=== PATIENT | female | born 1960 | race Two or more races ===

== ENCOUNTER 2018-01-05 15:59 | Emergency (ER) | payer SELFPAY ==
[~2018-01-05] VITALS: Ht 167.6 cm; Wt 80.3 kg
[2018-01-05 16:30] VITALS: BP 147/75
[2018-01-05] MEDS ORDERED: LORazepam 1mg tab ORAL ONE (16:45)
[2018-01-05 17:35] VITALS: BP 142/72
[2018-01-05] MEDS ORDERED: Meclizine 25mg tab ORAL ONE (17:45)
[2018-01-05 18:14] LABS: BASOPHILS % (AUTO) 0.7 % (0.0-2.0); EOSINOPHILS % (AUTO) 0.4 % (0.0-3.0); HEMATOCRIT 42.9 % (37.0-47.0); HEMOGLOBIN 14.8 G/DL (12.0-16.0); LYMPHOCYTES % (AUTO) 15.8 % (20.0-45.0); MEAN CORPUSCULAR VOLUME 92 FL (80-99); MONOCYTES % (AUTO) 6.3 % (1.0-10.0); NEUTROPHILS % (AUTO) 76.7 % (45.0-75.0); PLATELET COUNT 246 K/UL (150-450); RED BLOOD COUNT 4.64 M/UL (4.20-5.40); RED CELL DISTRIBUTION WIDTH 11.1 % (11.6-14.8); WHITE BLOOD COUNT 8.5 K/UL (4.8-10.8)
[2018-01-05 18:20] LABS: ANION GAP 8 mmol/L (5-15); BLOOD UREA NITROGEN 13 mg/dL (7-18); CALCIUM 10.1 MG/DL (8.5-10.1); CARBON DIOXIDE 30 MMOL/L (21-32); CHLORIDE 103 MMOL/L (98-107); CREATININE 0.9 MG/DL (0.55-1.30); SODIUM 141 MMOL/L (136-145)
[2018-01-05 18:25] LABS: ALANINE AMINOTRANSFERASE 34 U/L (12-78); ALBUMIN 4.3 G/DL (3.4-5.0); ALBUMIN/GLOBULIN RATIO 0.9 (1.0-2.7); ALKALINE PHOSPHATASE 79 U/L (46-116); ASPARTATE AMINO TRANSFERASE 21 U/L (15-37); BILIRUBIN,TOTAL 0.3 MG/DL (0.2-1.0)
--- NOTE | 2018-01-05 19:07 | Emergency Room Report ---
History of Present Illness General Chief Complaint: General Complaint Source: Patient Present Illness HPI 57 YO Female presents to the ED c/o feeling shaky and having dizziness x 1 month. Described intermittent episodic bouts of the room spinning without visual or auditory changes. Denies N/V. Pt. reports feeling Shaky today and has had a progressive onset 5/10 in severity GRIFFITHS that is generalized. Denies weakness or loss of gross motor movements, paresthesias, difficulty with speaking, swallowing or walking. Denies significant Pmhx and denies hx of anxiety/ panic attacks. Pt. denies hx of migraines or recent head injury. Denies Neck pain or stiffness. Denies photophobia. Patient states that she is worried about the cost that she does not have insurance and would like to keep cost down as much as possible. Allergies: Coded Allergies: No Known Allergies (Unverified , 01/05/18) Patient History Past Medical History: see triage record Past Surgical History: none Pertinent Family History: none Last Menstrual Period: menopause Now: No Reviewed Nursing Documentation: PMH: Agreed; PSxH: Agreed Nursing Documentation-PMH Past Medical History: No Stated History Review of Systems All Other Systems: negative except mentioned in HPI Physical Exam Vital Signs Date Time Temp Pulse Resp B/P (MAP) Pulse Ox O2 Delivery O2 Flow Rate FiO2 01/05/18 16:21 98.6 97 16 147/75 100 Room Air Sp02 EP Interpretation: reviewed, normal General Appearance: no apparent distress, alert, GCS 15, non-toxic, mild distress - Pt. Head: normocephalic, atraumatic Eyes: bilateral eye normal inspection, bilateral eye PERRL ENT: hearing grossly normal, normal voice Neck: full range of motion Respiratory: chest non-tender, lungs clear, normal breath sounds, speaking full sentences Cardiovascular #1: regular rate, rhythm, no edema Gastrointestinal: normal bowel sounds, non tender, soft Rectal: deferred Genitourinary: normal inspection Musculoskeletal: back normal, gait/station normal, normal range of motion, non- tender Neurologic: alert, oriented x3, responsive, motor strength/tone normal, sensory intact, normal gait, speech normal, no pronator, other - Unable to illicit nystagmus, able to perform finger to nose. No facial droop., grossly normal Psychiatric: judgement/insight normal, anxious Skin: normal color, no rash, warm/dry, well hydrated Medical Decision Making PA Attestation Dr. Orellana is my supervising Physician whom patient management has been discussed with. Diagnostic Impression: Primary Impression: Vertigo ER Course 57 YO Female presents to the ED c/o feeling shaky and having dizziness x 1 month. Described intermittent episodic bouts of the room spinning without visual or auditory changes. Denies N/V. Pt. reports feeling Shaky today and has had a progressive onset 5/10 in severity GRIFFITHS that is generalized. Denies weakness or loss of gross motor movements, paresthesias, difficulty with speaking, swallowing or walking. Denies significant Pmhx and denies hx of anxiety/ panic attacks. Pt. denies hx of migraines or recent head injury. Denies Neck pain or stiffness. Denies photophobia. Patient states that she is worried about the cost that she does not have insurance and would like to keep cost down as much as possible. Ddx considered but are not limited to Mnire's, BPPV, labrinitis, cerebellar stroke, Central vertigo, hypovolemia, cardiac cause, Anxiety reaction. Vital signs: are WNL, pt. is afebrile H&PE are most consistent with : Vertigo No focal deficit to indicate TIA or CVA. No Nystagmus of any direction. Better after Meclizine. Because of lack of focality and red flags pt. is stable for close outpatient Neuro evaluation. ORDERS: -CT head no contrast- negative for ICH, EDEMA, or mass -CMP: Unremarkable - EKG: NSR ED INTERVENTIONS: Ativan PO Meclizine PO Pt. reports symptoms have improved. I discussed with this patient that it is very important that she follow-up with a neurologist and have further evaluation/testing performed as having recurring headaches and symptoms of vertigo can represent and underlying problem in the brain. Pt. given strict ED return precautions. Family member at bedside also present and demonstrates understanding. DISCHARGE: At this time pt. is stable for d/c to home. Will provide printed patient care instructions, and any necessary prescriptions. Care plan and follow up instructions have been discussed with the patient prior to discharge. Labs Test 01/05/18 18:00 White Blood Count 8.5 K/UL (4.8-10.8) Red Blood Count 4.64 M/UL (4.20-5.40) Hemoglobin 14.8 G/DL (12.0-16.0) Hematocrit 42.9 % (37.0-47.0) Mean Corpuscular Volume 92 FL (80-99) Mean Corpuscular Hemoglobin 31.9 PG (27.0-31.0) Mean Corpuscular Hemoglobin Concent 34.5 G/DL (32.0-36.0) Red Cell Distribution Width 11.1 % (11.6-14.8) Platelet Count 246 K/UL (150-450) Mean Platelet Volume 7.6 FL (6.5-10.1) Neutrophils (%) (Auto) 76.7 % (45.0-75.0) Lymphocytes (%) (Auto) 15.8 % (20.0-45.0) Monocytes (%) (Auto) 6.3 % (1.0-10.0) Eosinophils (%) (Auto) 0.4 % (0.0-3.0) Basophils (%) (Auto) 0.7 % (0.0-2.0) Sodium Level 141 MMOL/L (136-145) Potassium Level 4.0 MMOL/L (3.5-5.1) Chloride Level 103 MMOL/L (98-107) Carbon Dioxide Level 30 MMOL/L (21-32) Anion Gap 8 mmol/L (5-15) Blood Urea Nitrogen 13 mg/dL (7-18) Creatinine 0.9 MG/DL (0.55-1.30) Estimat Glomerular Filtration Rate > 60 mL/min (>60) Glucose Level 107 MG/DL (74-106) Calcium Level 10.1 MG/DL (8.5-10.1) Total Bilirubin 0.3 MG/DL (0.2-1.0) Aspartate Amino Transf (AST/SGOT) 21 U/L (15-37) Alanine Aminotransferase (ALT/SGPT) 34 U/L (12-78) Alkaline Phosphatase 79 U/L (46-116) Total Protein 9.3 G/DL (6.4-8.2) Albumin 4.3 G/DL (3.4-5.0) Globulin 5.0 g/dL Albumin/Globulin Ratio 0.9 (1.0-2.7) EKG Diagnostic Results EP Interpretation: Dr. Orellana Rate: normal - 68 bpm Rhythm: NSR ST Segments: no acute changes ASA given to the pt in ED: No PA Scribe Text This Interpretation was scribed by SMITHA Gamez. Last Vital Signs Date Time Temp Pulse Resp B/P (MAP) Pulse Ox O2 Delivery O2 Flow Rate FiO2 01/05/18 16:21 98.6 97 16 147/75 100 Room Air Status: improved Disposition: HOME, SELF-CARE Condition: Stable Scripts Acetaminophen* (TYLENOL EXTRA STRENGTH*) 500 Mg Tablet 500 MG ORAL Q6H, #20 TAB 0 Refills Prov: Nelly Gamez 01/05/18 Meclizine Hcl* (VERTICALM*) 25 Mg Tablet 25 MG ORAL THREE TIMES A DAY, #15 TAB Prov: Nelly Gamez 01/05/18 Departure Forms: Return to Work Return to Work Date: Jan 08, 2018 Return to Full Activity: Jan 08, 2018 Patient Instructions: Dizziness, [id number], Vertigo, [id number] Additional Instructions: Take medications as directed. Follow up with a Neurologist in 3-5 days, even if your symptoms have resolved. --Please review list of primary care clinics, if you do not already have a primary care provider Return sooner to ED if new symptoms occur, or current symptoms become worse. Do not drink alcohol, drive, or operate heavy machinery while taking Meclizine/ Antivert as this may cause drowsiness. - Please note that this Emergency Department Report was dictated using [employer] technology software, occasionally this can lead to erroneous entry secondary to interpretation by the dictation equipment. Nelly Gamez Jan 05, 2018 19:07
[2018-01-05] MEDS ORDERED: TYLENOL EXTRA500 MG ORAL (19:10)
[2018-01-05] MEDS ORDERED: VERTICALM25 MG ORAL (19:10)
--- NOTE | 2018-01-09 17:01 | Cardiology Report ---
APPROVED REPORT EKG Measurement Heart [id number] Normal sinus rhythm Normal ECG
== END 2018-01-05 20:00 | disposition home or self-care (01) ==
LOC: EMR 19:26
DX: R42 Dizziness and giddiness (principal)
CPT/HCPCS: 36415; 80053; 85025; 93005; 99284